=== PATIENT | male | born 1940 | race Caucasian/White ===

== ENCOUNTER 2017-02-25 23:46 | Observation (INO) | payer MEDICARE, OTHER ==
--- NOTE | 2017-02-26 02:18 | ER Document Report ---
ED GI Bleed / Rectal Pain - General Chief Complaint: Rectal Bleeding Stated Complaint: RECTAL BLEEDING Time Seen by Provider: 02/26/17 01:57 Mode of Arrival: Ambulatory Information source: Patient Notes: 76-year-old male presents to ED for abdominal pain lower left and right started about 1030 tonight with rectal bleeding. He states it was dark red globules. States she has a history of diverticulosis with rectal bleed in the past that he was hospitalized for. States this was not as bad as last time.. TRAVEL OUTSIDE OF THE [place] IN LAST 30 DAYS: No - HPI Patient complains to provider of: Dark red bld from rectum. No: Hemorrhoids Onset: This evening Timing/Duration: Sudden, Better Quality of pain: Cramping Severity of symptoms: Moderate Pain Level: 2 Emesis description: Bright red blood - Dark red Rectal bleeding: Bleeding w/o stool - Bright red blood in his depends with globules Rectal foreign body: No Rectal pain with intercourse: No Associated symptoms: Abdominal pain. denies: Bruising/bleeding gums, Constipation, Hard stools Exacerbated by: Denies Relieved by: Denies Similar symptoms previously: Yes Recently seen / treated by doctor: No - Related Data Allergies/Adverse Reactions: No Known Drug Allergies Allergy (Verified 04/22/14 11:48) Past Medical History - General Information source: Patient - Social History Smoking Status: Never Smoker Cigarette use (# per day): No Chew tobacco use (# tins/day): No Smoking Education Provided: No Frequency of alcohol use: None Occupation: Retired Lives with: Family Family History: CAD, Hyperlipidemia, Hypertension, Thyroid Disfunction. denies : COPD, CVA, DM, Malignancy Patient has suicidal ideation: No Patient has homicidal ideation: No - Past Medical History Cardiac Medical History: Reports: Hx Hypercholesterolemia, Hx Hypertension - CONTROLLED Pulmonary Medical History: Reports: None EENT Medical History: Reports: None Neurological Medical History: Reports: None Endocrine Medical History: Reports: None Renal/ Medical History: Reports: None Malignancy Medical History: Reports None GI Medical History: Reports: Hx Colonoscopy, Other - Diverticulosis with rectal bleed Musculoskeltal Medical History: Reports Hx Arthritis, Reports Hx Musculoskeletal Deformity Skin Medical History: Reports None Psychiatric Medical History: Reports: None Traumatic Medical History: Reports: None Infectious Medical History: Reports: None Past Surgical History: Reports: Hx Orthopedic Surgery - Right total hip - Immunizations Immunizations up to date: Yes Hx Diphtheria, Pertussis, Tetanus Vaccination: Yes Review of Systems - Review of Systems Constitutional: No symptoms reported EENT: No symptoms reported Cardiovascular: No symptoms reported Respiratory: No symptoms reported Gastrointestinal: Abdominal pain - Bilateral lower, Rectal bleeding Genitourinary: No symptoms reported Male Genitourinary: No symptoms reported Musculoskeletal: No symptoms reported Skin: No symptoms reported Hematologic/Lymphatic: No symptoms reported Neurological/Psychological: No symptoms reported -: Yes All other systems reviewed and negative Physical Exam - Vital signs Vitals: Temp Pulse Resp BP Pulse Ox 97.5 F 79 16 149/71 H 97 02/26/17 00:00 02/26/17 00:00 02/26/17 00:00 02/26/17 00:00 02/26/17 00:00 Interpretation: Normal - General General appearance: Appears well, Alert - HEENT Head: Normocephalic, Atraumatic Eyes: Normal Pupils: PERRL - Respiratory Respiratory status: No respiratory distress Chest status: Nontender Breath sounds: Normal Chest palpation: Normal - Cardiovascular Rhythm: Regular Heart sounds: Normal auscultation Murmur: No - Abdominal Inspection: Normal Distension: No distension Bowel sounds: Normal Tenderness: Tender - Mild bilateral lower abdominal pain. No: McBurney's point , Kirkland's sign, Guarding, Rebound Organomegaly: No organomegaly - Rectal Tenderness: No Stool: Heme positive Hemorrhoids: None - Back Back: Normal, Nontender - Extremities General upper extremity: Normal inspection, Nontender, Normal color, Normal ROM , Normal temperature General lower extremity: Normal inspection, Nontender, Normal color, Normal ROM , Normal temperature, Normal weight bearing. No: Soni's sign - Neurological Neuro grossly intact: Yes Cognition: Normal Orientation: AAOx4 Toshia Coma Scale Eye Opening: Spontaneous L[place]ton Coma Scale Verbal: Oriented Toshia Coma Scale Motor: Obeys Commands Toshia Coma Scale Total: 15 Speech: Normal Motor strength normal: LUE, RUE, LLE, RLE Sensory: Normal - Psychological Associated symptoms: Normal affect, Normal mood - Skin Skin Temperature: Warm Skin Moisture: Dry Skin Color: Normal Course - Re-evaluation Re-evalutation: 02/26/17 07:[address] Broussard from [phone]. After numerous attempts with no answer multiple hang-up when ringing, call Dr. Flores at [phone]. He stated that I needed to have back before they would accept the patient because there is no GI traffic personnel supervisor today. There was GI coverage last night. Dr. Stephens today was consulted, he states he will be traffic personnel supervisor for this patient if there is any complications with a GI bleed. Called Jose Zhang PROBATION MANAGER she has accepted the patient with surgical consult patient will be admitted to IMCU observation. - Vital Signs Vital signs: Temp Pulse Resp BP Pulse Ox 97.5 F 68 18 150/76 H 95 02/26/17 00:00 02/26/17 06:05 02/26/17 06:05 02/26/17 06:05 02/26/17 06:05 - Laboratory Result Diagrams: 02/26/17 02:31 02/26/17 02:31 Laboratory results interpreted by me: 02/26/17 02/26/17 02/26/17 02:02 02:31 02:31 WBC 10.7 H RBC 3.98 L Hgb 11.5 L Hct 35.4 L RDW 14.3 H Absolute Neutrophils 8.3 H Glucose 121 H Urine Blood SMALL H Ur Leukocyte Esterase TRACE H - Diagnostic Test Radiology reviewed: Image reviewed, Reports reviewed Discharge - Discharge Clinical Impression: Rectal bleeding Diverticulosis of colon Qualifiers: Diverticulosis bleeding: diverticulosis with bleeding Qualified Code(s): K57.31 - Diverticulosis of large intestine without perforation or abscess with bleeding Admitting Provider: Hospitalist - [facility] Admitted: IMCU Referrals: JOSEMANUEL MILLER MD [Primary Care Provider] - Follow up as needed
[2017-02-26 02:35] LABS: APPEARANCE,URINE SLIGHTLY-CLOUDY; BILIRUBIN,URINE NEGATIVE (NEGATIVE); CALCIUM OXALATE CRYSTALS,URINE MANY /HPF; GLUCOSE, URINE NEGATIVE (NEGATIVE); KETONES,URINE NEGATIVE (NEGATIVE); LEUKOCYTE ESTERASE,URINE TRACE (NEGATIVE); NITRITE,URINE NEGATIVE (NEGATIVE); PROTEIN,URINE NEGATIVE (NEGATIVE); URINE SPECIFIC GRAVITY 1.024; UROBILINOGEN,URINE NEGATIVE mg/dL (<2.0)
[2017-02-26] MEDS: NORMAL SALINE 1000 ML 1,000 ML IV PRN ×2 (02:43→22:15)
[2017-02-26 02:48] LABS: ABSOLUTE BASOPHILS # (AUTO) 0.1 10^3/uL (0.0-0.2); ABSOLUTE EOSINOPHILS # (AUTO) 0.1 10^3/uL (0.0-0.6); ABSOLUTE LYMPHOCYTES (AUTO) 1.4 10^3/uL (0.5-4.7); ABSOLUTE MONOCYTES (AUTO) 0.8 10^3/uL (0.1-1.4); ABSOLUTE NEUT (AUTO) 8.3 10^3/uL (1.7-8.2); BASOPHILS % (AUTO) 0.7 % (0-2); EOSINOPHILS % (AUTO) 0.9 % (0-6); HEMATOCRIT 35.4 % (37.9-51.0); HEMOGLOBIN 11.5 g/dL (13.5-17.0); HGB HCT DIFFERENCE -0.9; MEAN CORPUSCULAR HEMOGLOBIN 28.8 pg (27.0-33.4); MEAN CORPUSCULAR HGB CONC 32.4 g/dL (32.0-36.0); MEAN CORPUSCULAR VOLUME 89 fl (80-97); MONOCYTES % (AUTO) 7.8 % (3-13); RED BLOOD COUNT 3.98 10^6/uL (4.35-5.55); RED CELL DISTRIBUTION WIDTH 14.3 % (11.5-14.0); SEGMENTED NEUTROPHILS % (AUTO) 77.6 % (42-78); WHITE BLOOD COUNT 10.7 10^3/uL (4.0-10.5)
[2017-02-26 02:58] LABS: ALANINE AMINOTRANSFERASE 51 U/L (21-72); ALBUMIN 3.7 g/dL (3.5-5.0); ALKALINE PHOSPHATASE 88 U/L (38-126); ANION GAP 10 (5-19); ASPARTATE AMINO TRANSFERASE 35 U/L (17-59); BILIRUBIN,DIRECT 0.3 mg/dL (0.0-0.4); BILIRUBIN,TOTAL 0.6 mg/dL (0.2-1.3); BLOOD UREA NITROGEN 12 mg/dL (7-20); CARBON DIOXIDE 26 mmol/L (22-30); CHLORIDE 103 mmol/L (98-107); CREATININE RESULT 0.87 mg/dL (0.52-1.25); GLUCOSE 121 mg/dL (75-110); POTASSIUM 3.6 mmol/L (3.6-5.0); SODIUM 139.2 mmol/L (137-145); TOTAL PROTEIN 6.7 g/dL (6.3-8.2)
--- NOTE | 2017-02-26 05:01 | RADIOLOGY REPORT (SQ) ---
EXAM DESCRIPTION: CT ABD/PELVIS WITH IV ORAL COMPLETED DATE/TIME: 02/26/2017 4:31 am REASON FOR STUDY: lower abd pain with rectal bleed COMPARISON: 06.07.13 TECHNIQUE: CT scan of the abdomen and pelvis performed using helical scanning technique with dynamic intravenous contrast injection. No oral contrast. Images reviewed with lung, soft tissue, and bone windows. Reconstructed coronal and sagittal MPR images reviewed. Delayed images for evaluation of the urinary system also acquired. All images stored on PACS. All CT scanners at this facility use dose modulation, iterative reconstruction, and/or weight based d osing when appropriate to reduce radiation dose to as low as reasonably achievable (ALARA). [facility]: Dose Right [facility]: CareDose [facility]: Dose Right [facility]: Teradose 4D [facility]: RFMarq CONTRAST TYPE AND DOSE: contrast/concentration: Isovue 370.00 mg/ml; Total Contrast Delivered: 76.0 ml; Total Saline Delivered: 41.0 ml RENAL FUNCTION: Creatinine 0.9. RADIATION DOSE: Up-to-date CT equipment and radiation dose reduction techniques were employed. CTDIv ol: 18.5 - 18.5 mGy. DLP: 1994 mGy-cm.. LIMITATIONS: None. FINDINGS: LOWER CHEST: No significant findings. No nodules or infiltrates. Small to moderate hiatal hernia. LIVER: Normal size. No masses. No dilated ducts. SPLEEN: Normal size. No focal lesions. PANCREAS: No masses. No significant calcifications. No adjacent inflammation or peripancreatic fluid collections. Pancreatic duct not dilated. GALLBLADDER: Gallstones. No inflammatory changes to suggest cholecystitis. ADRENAL GLANDS: No significant masses or asymmetry. RIGHT KIDNEY AND URETER: No solid masses. No significant calcifications. No hydronephrosis or hyd roureter. Likely benign cysts not definitively characterized measuring up to 5.0 cm. LEFT KIDNEY AND URETER: No solid masses. No significant calcifications. No hydronephrosis or hydr oureter. Likely benign small cysts not definitively characterize. AORTA AND VESSELS: No aneurysm. No dissection. Renal arteries, SMA, celiac without stenosis. RETROPERITONEUM: No retroperitoneal adenopathy, hemorrhage or masses. BOWEL AND PERITONEAL CAVITY: No masses or inflammatory changes. No free fluid or peritoneal masses. Moderate colonic diverticulosis. APPENDIX: Normal. PELVIS: No mass. No free fluid. Normal bladder. ABDOMINAL WALL: No masses. 4 cm right inguinal hernia involving a 7 cm segment of ileal bowel. No e vidence of obstruction. No evidence of incarceration. 2 cm left inguinal hernia involves a partial 1.5 cm small bowel herniation without complication. BONES: Right total hip arthroplasty with chronic superolateral migration of the acetabular component. Ankylosing spondylitis pattern. Severe L5-S1 vacuum disc desiccation. Moderate L5-S1 disc bulge m oderate L5-S1 spondylosis with moderate bilateral L5 foraminal stenoses. OTHER: No other significant finding. IMPRESSION: No acute findings. Moderate right inguinal, small bowel herniation. Small left inguina l, partial small bowel herniation. Moderate hiatal hernia. Cholelithiasis. Diverticulosis of the c olon. Chronic ankylosing spondylitis pattern. TECHNICAL DOCUMENTATION: JOB ID: [id number] Quality ID # [id number]: Final reports with documentation of one or more dose reduction techniques (e.g., Au tomated exposure control, adjustment of the mA and/or kV according to patient size, use of iterative reconstruction technique) 2010 [employer]- All Rights Reserved
[2017-02-26] MEDS ORDERED: RINGERS SOLUTION,LACTATED 1,000 ML IV PRN (07:26)
[2017-02-26 08:59] LABS: ABSOLUTE LYMPHOCYTES (AUTO) 0.8 10^3/uL (0.5-4.7); ABSOLUTE MONOCYTES (AUTO) 0.4 10^3/uL (0.1-1.4); ABSOLUTE NEUT (AUTO) 5.3 10^3/uL (1.7-8.2); BASOPHILS % (AUTO) 0.5 % (0-2); EOSINOPHILS % (AUTO) 0.5 % (0-6); HEMATOCRIT 31.3 % (37.9-51.0); HEMOGLOBIN 10.3 g/dL (13.5-17.0); HGB HCT DIFFERENCE -0.4; LYMPHOCYTES % (AUTO) 12.8 % (13-45); MEAN CORPUSCULAR HEMOGLOBIN 28.9 pg (27.0-33.4); MEAN CORPUSCULAR HGB CONC 32.8 g/dL (32.0-36.0); MEAN CORPUSCULAR VOLUME 88 fl (80-97); MONOCYTES % (AUTO) 6.1 % (3-13); RED BLOOD COUNT 3.55 10^6/uL (4.35-5.55); SEGMENTED NEUTROPHILS % (AUTO) 80.1 % (42-78); WHITE BLOOD COUNT 6.6 10^3/uL (4.0-10.5)
--- NOTE | 2017-02-26 10:28 | HISTORY AND PHYSICAL E ---
History and Physical NAME: FRAN CHENG : 1940 AGE: 76Y ADMITTED: 02/26/2017 ROOM: ED11 CODE STATUS: FULL CODE. PRIMARY CARE PROVIDER: Dr. Rojas Balderas CHIEF COMPLAINT: Bloody stool. HISTORY OF PRESENT ILLNESS: The patient is a 76-year-old male with a past medical history of hypertension and a previous episode of diverticular bleeding. The patient presented to the emergency department with a chief complaint of bloody stools. According to the patient, at approximately 2230 on 02/25/2017, the patient had a bowel movement that he described as "nothing but blood." The patient initially thought there may be stool in this; however, upon reflection, feels that it was just coagulated blood and not actual stool. Upon presentation to the emergency department, the patient was found to have a heart rate of 79. He was normotensive, but hemoglobin was found to be 11.5 and the patient was referred to the hospitalist for admission and management. While in the emergency department, the patient had 2 episodes of what he described as bloody bowel movements that actually did consist of stool; however, this was not witnessed by emergency room staff. The patient had a guaiac that was positive. No repeat hemoglobin has been obtained at this time. PAST MEDICAL HISTORY: Remarkable for: 1. Hypertension. 2. Known diverticulosis with previous diverticular bleed. 3. Benign prostatic hyperplasia. 4. Hyperlipidemia. PAST SURGICAL HISTORY: Remarkable for right hip replacement. ALLERGIES: No known drug allergies. HOME MEDICATIONS: Include: 1. Oxazepam 15 mg p.o. q. hour of sleep. 2. Flomax 0.4 mg p.o. q. evening. 3. Enalapril 10 mg p.o. b.i.d. 4. Finasteride 5 mg p.o. nightly. 5. Simvastatin 20 mg p.o. q. hour of sleep. SOCIAL HISTORY: The patient currently resides at home with his who is also surrogate decision maker. Her name is Hiro who may be reached at [phone] or [phone]. The patient has no history of tobacco use, no history of alcohol or illicit drug use. He is retired from the state. FAMILY MEDICAL HISTORY: Positive for coronary artery disease in his father. He did from this. The patient's mother of old age at the age of 92. Denies any family history of colon cancer. Siblings have no chronic medical issues, children who are healthy. REVIEW OF SYSTEMS: CONSTITUTIONAL: The patient denies any fevers, chills, dizziness, or weakness. No loss of appetite. SKIN: The patient denies any diaphoresis, rash, bruising, itching. HEENT: Denies any vision change, hearing loss, nasal drainage, sore throat, headache. CARDIOVASCULAR SYSTEM: Denies any chest pain, edema, heart palpitations. RESPIRATORY: Denies any cough, sputum production, or hemoptysis. GASTROINTESTINAL: Denies any nausea, vomiting, diarrhea, abdominal pain, bloating, hematemesis, constipation, melena, but positive for hematochezia or bright red bleeding per rectum. GENITOURINARY: Denies any hematuria or dysuria. MUSCULOSKELETAL: Denies any acute or chronic joint pain. NEUROLOGICAL: Denies any seizures, tremors, or loss of consciousness. HEMATOLOGICAL: The patient has had an episode of fran bleeding. Denies easy bruising. ENDOCRINE: Denies any recent weight changes. PSYCHIATRIC: Denies suicidal/homicidal ideations. The rest of review of the other organ systems is negative. PHYSICAL EXAMINATION: GENERAL: On examination, the patient is a well-developed, well-nourished 76-year-old male who is awake, alert, and oriented to person, place, time, and situation. He is verbal, conversational, ambulatory, does not appear to be in any acute distress. VITAL SIGNS: Temperature is 98.7, pulse 67, respirations 18, blood pressure 156/71, oxygen saturation 96% on room air. SKIN: Warm and dry. No rash. She is not diaphoretic. HEENT: Pupils equal, round, and reactive to light and accommodation. Conjunctiva pink. No JVP. CARDIOVASCULAR SYSTEM: Heart is regular. There is no murmur or rub. CHEST: Clear, symmetrical, unlabored. ABDOMEN: Soft, nontender, nondistended. BACK: No CVA tenderness or sacral edema. EXTREMITIES: No clubbing, cyanosis, edema, +2 pedal pulses noted bilaterally. All extremities are warm. PSYCHIATRIC: Appropriate affect, pleasant mood. NEUROLOGIC: Cranial nerves II-XII are grossly intact. DIAGNOSTICS: Lab values are as follows: Hematology obtained on 02/26/2017: WBCs are 6.6, hemoglobin is 10.3, hematocrit is 31.3, platelet count is 197,000. Chemistry obtained on 02/26/2017: Sodium is 139, potassium 3.6, chloride is 103, carbon dioxide 26, BUN 12, creatinine is 0.87, glucose 121, calcium is 9.0, bilirubin is 0.6. AST 35, ALT is 51, Alk phos 88, total protein 6.7, albumin 3.7. Urinalysis obtained on 02/26/2017: Color yellow, appearance slightly cloudy. PH is 5.0, specific gravity is 1.024. Protein negative, glucose negative, ketones negative, occult blood small, nitrate negative, bilirubin negative, urobilinogen is negative, leukocyte esterase is trace. WBCs 8, RBCs 1, casts 1, epithelial squamous cells 12, mucus few, ascorbic acid is negative. Stool for occult blood is positive. CT of the abdomen and pelvis obtained on 02/26/2017 reveals no acute findings, moderate right inguinal small bowel herniation, small left inguinal partial small herniation, moderate hiatal hernia, cholelithiasis without evidence of cholecystitis, diverticulosis of the colon, chronic ankylosing spondylitis pattern. IMPRESSION AND PLAN: 1. Lower gastrointestinal hemorrhage. Will repeat CBC STAT. Will lower threshold for transfusion to less than 9 or if the patient becomes more symptomatic. The patient has had no further episodes since approximately 0700. Will continue to watch this closely. Do appreciate Surgery's ability to follow along with us. Will follow. Will obtain serial CBCs as well. 2. Hypertension. The patient's blood pressures are in a good range. Will allow some leadway with this. In the event the patient bleeds, have some pressure to work with. 3. Benign prostatic hyperplasia. Will continue the patient's home medications. 4. Hyperlipidemia. Will hold statin for now. 5. Deep venous thrombosis prophylaxis. The patient is ambulatory. Will add VIRGIL beltran. Defer pharmacological prophylaxis given the patient's bleeding. DISPOSITION: The patient is a FULL CODE. Pending patient's symptomatology and diagnostic findings, will re-evaluate as needed. Will observe the patient in IMCU as the patient's expected length of stay should not surpass 2 midnights unless the patient develops more bleeding. Time spent on this admission including assessment, plan, physical examination, patient education, specialty collaboration, and review of previous records is 50 minutes. DICTATING PHYSICIAN: MANDIE POLANCO NP [id number] PHY#: [id number] ID: [id number] JOB#: [id number] ACCT: [id number] cc:LIZBETH BENDER M.D. MANDIE POLANCO NP > [facility]
--- NOTE | 2017-02-26 10:59 | Physician Advisory Note ---
Physician Advisor ProgressNote .: [facility], I have reviewed the medical record for this patient. Physician Advisor Statement: Beautifully documented reasoning for Obs status in H&P. If pt develops worsening/ongoing clinical issues that prevent d/c 02/27, this can be documented & then pt changed to Inpt. CK
[2017-02-26 15:28] LABS: HEMOGLOBIN 10.5 g/dL (13.5-17.0); HGB HCT DIFFERENCE -0.5; MEAN CORPUSCULAR HGB CONC 32.8 g/dL (32.0-36.0); MEAN CORPUSCULAR VOLUME 89 fl (80-97); RED BLOOD COUNT 3.62 10^6/uL (4.35-5.55); RED CELL DISTRIBUTION WIDTH 14.5 % (11.5-14.0); WHITE BLOOD COUNT 7.6 10^3/uL (4.0-10.5)
[2017-02-26 22:09] LABS: HEMATOCRIT 29.5 % (37.9-51.0); HEMOGLOBIN 9.6 g/dL (13.5-17.0); HGB HCT DIFFERENCE -0.7; MEAN CORPUSCULAR HEMOGLOBIN 28.8 pg (27.0-33.4); MEAN CORPUSCULAR HGB CONC 32.5 g/dL (32.0-36.0); MEAN CORPUSCULAR VOLUME 89 fl (80-97); RED BLOOD COUNT 3.32 10^6/uL (4.35-5.55); RED CELL DISTRIBUTION WIDTH 14.4 % (11.5-14.0); WHITE BLOOD COUNT 6.4 10^3/uL (4.0-10.5)
[2017-02-27 04:39] LABS: HEMATOCRIT 30.1 % (37.9-51.0); HEMOGLOBIN 9.9 g/dL (13.5-17.0); HGB HCT DIFFERENCE -0.4; MEAN CORPUSCULAR HEMOGLOBIN 29.1 pg (27.0-33.4); MEAN CORPUSCULAR VOLUME 88 fl (80-97); RED BLOOD COUNT 3.41 10^6/uL (4.35-5.55); RED CELL DISTRIBUTION WIDTH 14.3 % (11.5-14.0); WHITE BLOOD COUNT 6.3 10^3/uL (4.0-10.5)
[2017-02-27] MEDS: NORMAL SALINE 1000 ML 1,000 ML IV PRN ×2 (05:52→15:02)
--- NOTE | 2017-02-27 09:22 | PDOC CONSULTATION ---
Consultation Consult Date: 02/27/17 Attending physician:: REFUGIO GONZALEZ Consult reason:: GI bleeding History of Present Illness Admission Date/PCP: 02/26/17 07:26 JOSEMANUEL MILLER MD History of Present Illness: NIKOLE CHENG JR is a 76 year old male Patient was admitted by the Hospitalist service, had GI bleeding previously was scoped any was noted to have significant diverticular disease this was presumed to be the source has been doing well since then patient also had polyp that was removed in the past, may be due for a surveillance as well when admitted, Hgb was stable and plan was for possible observation no blood transfusion as yet this am, had another bleeding episode Called to see patient denies any pain or melena patient denies any chest pain or shortness of breath Past Medical History Cardiac Medical History: Reports: Hyperlipidema, Hypertension - CONTROLLED Denies: Myocardial Infarction Pulmonary Medical History: Reports: None Denies: Asthma EENT Medical History: Reports: None Neurological Medical History: Reports: None Denies: Seizures Endocrine Medical History: Reports: None Renal/ Medical History: Reports: None Malignancy Medical History: Reports: None GI Medical History: Reports: Other - Diverticulosis with rectal bleed Denies: Hiatal Hernia Musculoskeltal Medical History: Reports: Arthritis Skin Medical History: Reports: None Psychiatric Medical History: Reports: None Traumatic Medical History: Reports: None Hematology: Denies: Anemia, Sickle Cell Disease Infectious Medical History: Reports: None Past Surgical History Past Surgical History: Reports: Orthopedic Surgery - Right total hip Social History Lives with: Family Smoking Status: Never Smoker Frequency of Alcohol Use: None Hx Recreational Drug Use: No Drugs: None Hx Prescription Drug Abuse: No - Advance Directive Resuscitation Status: Full Code Family History Family History: CAD, Hyperlipidemia, Hypertension, Thyroid Disfunction. denies : COPD, CVA, DM, Malignancy Parental Family History Reviewed: Yes Children Family History Reviewed: Unknown Sibling(s) Family History Reviewed.: Unknown Medication/Allergy Home Medications: Enalapril Maleate [Vasotec 10 mg Tablet] 10 mg PO Q12 02/26/17 Oxazepam [Serax] 15 mg PO DAILY 02/26/17 Simvastatin [Zocor 20 mg Tablet] 20 mg PO QHS 02/26/17 Tamsulosin HCl [Flomax 0.4 mg Cap.sr] 0.4 mg PO QHS 02/26/17 Allergies/Adverse Reactions: No Known Drug Allergies Allergy (Verified 02/26/17 08:13) Review of Systems Constitutional: ABSENT: fever(s), headache(s), night sweats, weakness Eyes: ABSENT: visual disturbances Ears: ABSENT: hearing changes Nose, Mouth, and Throat: ABSENT: mouth pain Cardiovascular: ABSENT: edema, orthropnea Respiratory: ABSENT: dyspnea, hemoptysis Gastrointestinal: ABSENT: dysphagia, nausea, vomiting Genitourinary: ABSENT: dysuria Musculoskeletal: ABSENT: joint swelling Integumentary: ABSENT: pruritus Neurological: ABSENT: numbness, syncope, tingling, vertigo Endocrine: ABSENT: polydipsia, polyphagia, polyuria Hematologic/Lymphatic: ABSENT: easy bruising Physical Exam Vital Signs: Temp Pulse Resp BP Pulse Ox 98.9 F 61 16 148/65 H 99 02/27/17 07:30 02/27/17 07:30 02/27/17 07:30 02/27/17 07:30 02/27/17 07:30 Intake & Output 02/26/17 02/27/17 02/28/17 06:59 06:59 06:59 Intake Total 4200 Output Total 2 Balance 4198 Weight 71 kg General appearance: PRESENT: no acute distress, well-developed, well-nourished Head exam: PRESENT: normocephalic Eye exam: PRESENT: EOMI, PERRLA. ABSENT: nystagmus, periorbital swelling Mouth exam: PRESENT: moist, neck supple Throat exam: ABSENT: tonsillar exudate, tonsillogmegaly Neck exam: ABSENT: meningismus, tenderness, thyromegaly Respiratory exam: PRESENT: symmetrical, unlabored Cardiovascular exam: PRESENT: RRR, +S1, +S2 Pulses: PRESENT: normal carotid pulses GI/Abdominal exam: PRESENT: soft. ABSENT: ascites, Kirkland's sign, rebound, tenderness Gentrourinary exam: ABSENT: lesions Extremities exam: ABSENT: joint swelling Musculoskeletal exam: PRESENT: full ROM Neurological exam: PRESENT: oriented to time, oriented to situation, reflexes normal Skin exam: PRESENT: normal color. ABSENT: mottled, pallor, urticaria, vesicles Results Laboratory Results: 02/27/17 04:15 02/26/17 02/26/17 02/27/17 14:43 22:02 04:15 WBC 7.6 6.4 6.3 RBC 3.62 L 3.32 L 3.41 L Hgb 10.5 L 9.6 L 9.9 L Hct 32.0 L 29.5 L 30.1 L MCV 89 89 88 MCH 29.0 28.8 29.1 MCHC 32.8 32.5 33.0 RDW 14.5 H 14.4 H 14.3 H Plt Count 232 199 160 Impressions: Abdomen/Pelvis CT 02/26/17 00:00 IMPRESSION: No acute findings. Moderate right inguinal, small bowel herniation. Small left inguinal, partial small bowel herniation. Moderate hiatal hernia. Cholelithiasis. Diverticulosis of the colon. Chronic ankylosing spondylitis pattern. Assessment & Plan - Diagnosis (1) Diverticulosis of colon Qualifiers: Diverticulosis bleeding: diverticulosis with bleeding Qualified Code(s) : K57.31 - Diverticulosis of large intestine without perforation or abscess with bleeding Plan: likely having diverticular bleeding will monitor H/H transfuse as necessary will need colonoscopy Risks, benefits and alternatives are discussed with the patient in detail further recommendations to follow (2) Rectal bleeding Plan: will need to exclude other etiology (3) Colon polyp Plan: due for surveillance as well should proceed while inpatient - Time Time Spent: 50 to 70 Minutes
--- NOTE | 2017-02-27 09:43 | PROGRESS NOTE E ---
Progress Note NAME: NIKOLE CHENG : 1940 AGE: 76Y DATE: 02/27/2017 ROOM: 320 SUBJECTIVE: The patient is currently lying in bed. He states he feels okay today. He denies any nausea, vomiting, diarrhea. No shortness of breath, dizziness, chest pain. No fevers, chills. The patient has been afebrile. His blood pressure has been in a good range. The patient does not voice any other concerns at this time. According to the patient, this morning at 5 a.m. he had yet another bloody stool. Given that the patient has went almost 24 hours in between episodes, concern for a significant GI bleed. Patient's hemoglobin has remained relatively stable; however, will proceed with GI evaluation. REVIEW OF SYSTEMS: Rest of review of systems negative. MEDICATIONS: Medications have been reviewed. OBJECTIVE: GENERAL: The patient is a very pleasant 76-year-old male who is awake, alert, and oriented to person, place, time, and situation. He is verbal, conversational, ambulatory, does not appear to be in acute distress. VITAL SIGNS: Temperature is 98.9, pulse 61, respirations 16, blood pressure is 148/65, oxygen saturation is 99% on room air. SKIN: Warm and dry. No rash. Not diaphoretic. HEENT: Pupils equal, round, and reactive to light and accommodation. Conjunctiva pink. No JVP. CARDIOVASCULAR SYSTEM: Heart is regular. There is no murmur or rub. CHEST: Clear, symmetrical, unlabored. ABDOMEN: Soft, nontender, nondistended. BACK: No CVA tenderness or sacral edema. EXTREMITIES: No clubbing, cyanosis, edema. PSYCHIATRIC: Appropriate affect, pleasant mood. DIAGNOSTICS: Lab values are as follows: Hematology obtained on 02/27/2017: WBCs are 6.3, hemoglobin is 9.9, hematocrit is 30.1, platelet count is 160,000. Chemistry obtained on 02/26/2017: Sodium is 139, potassium 3.6, chloride is 103, carbon dioxide is 26, BUN 12, creatinine is 0.87, glucose 121, calcium is 9.0, bilirubin is 0.6. AST 35, ALT is 51, Alk phos 88, total protein 6.7, albumin 3.7. IMPRESSION AND PLAN: 1. LOWER GI BLEED. Patient had a reoccurrence of episode this morning. Therefore, will consult GI, monitor patient's hemoglobin, and follow. Do appreciate specialty input. 2. HYPERTENSION. Blood pressure has been in a good range. Will allow some leadway with this given that if the patient bleeds would have some pressure to work with. 3. BENIGN PROSTATIC HYPERPLASIA. Will continue home medication. 4. HYPERLIPIDEMIA. Will go ahead and resume the statin. 5. DVT PROPHYLAXIS. The patient is ambulatory. Will continue VIRGIL hose, but defer pharmacological prophylaxis given the patient's bleeding. DISPOSITION: The patient is a FULL CODE. Pending patient's symptomatology and diagnostic findings, will re-evaluate as needed. Time spent on this followup including assessment, plan, physical examination, patient education, specialty collaboration is 25 minutes. DICTATING PHYSICIAN: MANDIE POLANCO NP [id number] PHY#: [id number] ID: [id number] JOB#: [id number] ACCT: [id number] cc: >
[2017-02-27] MEDS: ENALAPRIL MALEATE 10 MG TABLET PO SCH ×2 (10:01→21:55)
[2017-02-27] MEDS ORDERED: PEG 3350/NA SULF,BICARB,CL/KCL 4000 ML PO ONE (18:00)
[2017-02-27] MEDS ORDERED: GLUCAGON,HUMAN RECOMB 1 MG INJ SUBCUT PRN (18:18)
[2017-02-27] MEDS ORDERED: DEXTROSE 40% GEL 15 GM TUBE PO PRN ×2 (18:18)
[2017-02-27] MEDS ORDERED: DEXTROSE 50%-WATER 25 GM/50 ML DISP.SYRIN IV PRN ×2 (18:18)
[2017-02-27] MEDS: SIMVASTATIN 10 MG TABLET PO SCH (21:56)
[2017-02-27] MEDS: TAMSULOSIN HCL 0.4 MG CAP.SR.24H PO SCH (21:56)
[2017-02-28 06:04] LABS: HEMATOCRIT 30.8 % (37.9-51.0); HEMOGLOBIN 10.2 g/dL (13.5-17.0); HGB HCT DIFFERENCE -0.2; MEAN CORPUSCULAR HEMOGLOBIN 28.9 pg (27.0-33.4); MEAN CORPUSCULAR VOLUME 88 fl (80-97); RED BLOOD COUNT 3.52 10^6/uL (4.35-5.55); WHITE BLOOD COUNT 5.1 10^3/uL (4.0-10.5)
[2017-02-28] MEDS: NORMAL SALINE 1000 ML 1,000 ML IV PRN (08:57)
--- NOTE | 2017-02-28 09:57 | PROGRESS NOTE E ---
Progress Note NAME: NIKOLE CHENG : 1940 AGE: 76Y DATE: 02/28/2017 ROOM: 320 SUBJECTIVE: The patient is currently lying in bed. He states he feels okay today. The patient's hemoglobin is relatively stable. However, overnight during his prep, the patient did have a large volume of clots. Could possibly be from the previous bleeding; however, the patient is to have endoscopy today. There have been no reported episodes of vomiting nor diarrhea. The patient has been afebrile. Blood pressure has been in a good range. The patient does not voice any other concerns at this time. REVIEW OF SYSTEMS: Rest of review of systems negative. MEDICATIONS: Medications have been reviewed. OBJECTIVE: GENERAL: The patient is a 76-year-old male who is awake, alert, and oriented to person, place, time, and situation. He is verbal, conversational, ambulatory, does not appear to be in acute distress. VITAL SIGNS: Temperature is 98.3, pulse 60, respirations 20, blood pressure 132/61, oxygen saturation 98% on room air. SKIN: Warm and dry. No rash. Not diaphoretic. HEENT: Pupils equal, round, and reactive to light and accommodation. Conjunctivae pink. No JVP. CARDIOVASCULAR SYSTEM: Heart is regular. There is no murmur or rub. CHEST: Clear, symmetrical, unlabored. ABDOMEN: Soft, nontender, nondistended. Bowel sounds are present. BACK: No CVA tenderness or sacral edema. EXTREMITIES: No clubbing, cyanosis, edema. PSYCHIATRIC: Appropriate affective, pleasant mood. DIAGNOSTICS: Lab values are as follows: Hematology obtained on 02/28/2017: WBCs are 5.1, hemoglobin is 10.2, hematocrit is 30.8, platelet count is 211,000. IMPRESSION AND PLAN: 1. LOWER GI BLEED. The patient did have clots overnight. This may just be old blood given that his hemoglobin has remained stable. However, given the overall, still remains concern. The patient does need to be monitored. The patient is to have a colonoscopy today with Dr. Bray around lunchtime. Most likely, will feel comfortable, given the patient's age, monitoring him after the procedure to make sure there is no reoccurrence of bleed. Will follow. 2. HYPERTENSION. Blood pressure has been in a good range. Will continue current medications. 3. BENIGN PROSTATIC HYPERPLASIA. Will continue the patient's home medications. 4. HYPERLIPIDEMIA. Will continue statin. 5. DVT PROPHYLAXIS. The patient is ambulatory. Have deferred pharmacological anticoagulation given the patient's rectal bleeding. DISPOSITION: The patient is a FULL CODE. Pending patient's symptomatology and diagnostic findings, most likely will re-evaluate in the a.m. Time spent on this followup including assessment, plan, physical examination, patient education, and specialty collaboration is 20 minutes. DICTATING PHYSICIAN: MANDIE POLANCO NP [id number] PHY#: [id number] ID: [id number] JOB#: [id number] ACCT: [id number] cc: >
[2017-02-28] MEDS: ENALAPRIL MALEATE 10 MG TABLET PO SCH ×2 (10:03→22:04)
[2017-02-28] MEDS ORDERED: DIPHENHYDRAMINE HCL 50 MG/ML VIAL ONE (12:35)
[2017-02-28] MEDS ORDERED: ONDANSETRON HCL INJ/PF 4 MG/2 ML SDV ONE (12:35)
[2017-02-28] MEDS ORDERED: NALOXONE HCL INJ/PF 0.4 MG/1 ML SDV ONE (12:35)
[2017-02-28] MEDS ORDERED: GLUCAGON,HUMAN RECOMB 1 MG INJ ONE (12:36)
[2017-02-28] MEDS ORDERED: FENTANYL CITRATE INJ/PF 100 MCG/2 ML AMPUL ONE (12:36)
[2017-02-28] MEDS ORDERED: EPINEPHRINE INJ 1 MG/10 ML DISP.SYRIN ONE (12:36)
[2017-02-28] MEDS ORDERED: FLUMAZENIL INJ 0.5 MG/5 ML VIAL IV ONE (12:36)
[2017-02-28] MEDS: MIDAZOLAM 2 MG/2 ML INJ ONE ×2 (13:58→14:03)
--- NOTE | 2017-02-28 14:40 | Operative Report ---
Operative Report DATE OF SURGERY: 02/28/17 Operative Report: The risks, benefits and alternatives of the procedure including risks of bleeding, perforation requiring surgery are explained to the patient detail and informed consent is obtained. Patient was taken back to the endoscopy suite and placed in the left, lateral decubital position. Timeout was called. Conscious sedation medications are provided. A rectal examination was done which did not reveal any masses, tears or fissures. An Olympus video scope was inserted into the patient's rectum. The scope was then carefully advanced all the way to the cecum. Cecum was identified by the usual anatomical landmarks of the ileocecal valve as well as the appendiceal office. Photodocumentation was obtained. Prep was good. Scope was then sequentially pulled back via the various segments of the colon including the ascending colon, hepatic flexure, transverse colon, splenic flexure, descending colon and finding to the rectosigmoid portions of the colon. Retroflexion maneuver was performed. PREOPERATIVE DIAGNOSIS: Rectal bleeding POSTOPERATIVE DIAGNOSIS: Diverticulosis. Previous history of diverticular bleeding. 2 polyps one in the ascending colon and the other in the rectum that were both removed via snare polypectomy and retrieved. Internal hemorrhoids OPERATION: Colonoscopy with snare polypectomy SURGEON: REFUGIO GONZALEZ ANESTHESIA: Moderate Sedation - 4 mg of Versed, 50 mcg of fentanyl. Conscious sedation monitoring time 30 minutes. TISSUE REMOVED OR ALTERED: Polyps as noted COMPLICATIONS: None. ESTIMATED BLOOD LOSS: None. INTRAOPERATIVE FINDINGS: As described above. PROCEDURE: Patient tolerated the procedure well. No immediate postprocedure complications are noted. Patient discharged back to his room in good condition. Discharge diet: Regular. Discharge activity: Regular. 2-3 week follow-up to discuss findings. Patient is instructed to call the office should there be any further problems or questions. Follow-up as an outpatient.
[2017-02-28] MEDS: SIMVASTATIN 10 MG TABLET PO SCH (22:04)
[2017-02-28] MEDS: TAMSULOSIN HCL 0.4 MG CAP.SR.24H PO SCH (22:05)
[2017-03-01 05:00] LABS: HEMATOCRIT 29.5 % (37.9-51.0); HEMOGLOBIN 9.7 g/dL (13.5-17.0); HGB HCT DIFFERENCE -0.4; MEAN CORPUSCULAR HEMOGLOBIN 28.9 pg (27.0-33.4); MEAN CORPUSCULAR VOLUME 88 fl (80-97); RED BLOOD COUNT 3.37 10^6/uL (4.35-5.55)
--- NOTE | 2017-03-01 08:48 | DISCHARGE SUMMARY E ---
Discharge Summary NAME: NIKOLE CHENG : 1940 AGE: 76Y ADMITTED: 02/26/2017 DISCHARGED: 03/01/2017 CODE STATUS: FULL CODE. PRIMARY CARE PROVIDER: Dr. Rojas Balderas. CONSULTING SEPARATIONS SCIENTIST: Dr. Bray. DISCHARGE DIAGNOSES: 1. Acute diverticular bleed which is now resolved. 2. Lower GI bleed secondary to #1. 3. Acute blood loss anemia secondary to the above, overall stable. 4. Hypertension. 5. Benign prostatic hyperplasia. 6. Hyperlipidemia. DISCHARGE MEDICATIONS: 1. Vasotec 10 mg p.o. q.12 h. 2. Oxazepam 15 mg p.o. daily. 3. Zocor 20 mg p.o. every hour of sleep. 4. Flomax 0.4 mg p.o. every hour of sleep. DIET: As tolerated, low residue. ACTIVITY: As tolerated. DIAGNOSTICS: Lab values are as follows: Hematology on 03/01/2017: WBCs are 6.0, hemoglobin 9.7, hematocrit 29.5, platelet count is 222,000. Chemistry obtained on 02/26/2017: Sodium is 139, potassium 3.6, chloride 103, carbon dioxide 26, BUN 12, creatinine 0.87, glucose 121, calcium 9.0, magnesium 2.0, bilirubin 0.6, AST 35, ALT 51, alkaline phosphatase 88, total protein 6.7, albumin 3.7, Urinalysis obtained on 02/26/2017: Color yellow, appearance slightly cloudy, pH 5.0, specific gravity is 1.024, protein negative, glucose negative, ketones negative, occult blood small, nitrite negative, bilirubin negative, urobilinogen negative, leukocyte esterase trace, WBC 8, RBC 1, cath 4, epithelial squamous cells 12, mucus few, ascorbic acid is negative. Other body sources obtained on 02/26/2017: Stool for occult blood is positive. CT of the abdomen and pelvis obtained on 02/26/2017 reveals no acute findings. Moderate right inguinal small bowel herniation, small left inguinal partial small bowel herniation, moderate hiatal hernia, cholelithiasis, diverticulosis of the colon, chronic ankylosing spondylitis pattern. Colonoscopy obtained on 02/28/2017 reveals diverticulosis, status post dual polypectomy with internal hemorrhoids. PHYSICAL EXAMINATION: GENERAL: On examination, the patient is a well-developed, well-nourished 76-year-old male who is awake, alert and oriented to person, place, time and situation. He is verbal, conversational, and ambulatory and does not appear to be in any acute distress. VITAL SIGNS FOLLOWS: Temperature 98.1, pulse 71, respirations 16, blood pressure 126/66, oxygen saturation is 99% on room air. SKIN: Warm and dry. No rash, not diaphoretic. HEENT: Pupils are equal, round, and reactive to light and accommodation. Conjunctivae is pink. NECK: There is no JVP. CARDIOVASCULAR: Heart is regular. There is no murmur or rub. CHEST: Clear, symmetrical and unlabored. ABDOMEN: Soft. Nontender, nondistended. BACK: No CVA tenderness or sacral edema. EXTREMITIES: No clubbing, cyanosis or edema. PSYCHIATRIC: Appropriate affect. Pleasant mood. HISTORY OF PRESENT ILLNESS: The patient is a very pleasant 76-year-old male with a past medical history that is remarkable for previous diverticular bleed. The patient presented to the emergency department with a chief complaint of bloody stools. According to the patient, at approximately 2230 on 02/25/2017, the patient was having a bowel movement which he described as nothing but blood. The patient initially thought there may be stool in this; however, upon reflection, he feels it was just coagulated blood and not actual stool. Upon presentation to the emergency department, the patient was found to have a heart rate of 79 and he was normotensive. His hemoglobin was found to be 11.5 and the patient was referred to the hospitalist for admission and management. HOSPITAL COURSE: The patient was admitted to the continuous telemetry unit. The patient had 2 episodes of bloody bowel movement which did not consist of any stool. The patient was guaiac positive. Repeat hemoglobin was overall stable; however, the patient did have a reoccurrence of bleed and, therefore, Dr. Bray with gastroenterology was consulted and the patient underwent colonoscopy. The patient did have evidence of diverticular bleed and after the procedure, the patient has been monitored for greater than 12 hours and the patient has had no reoccurrence of bleed. The patient's diet has been advanced and he has tolerated this, and the patient has agreed to follow up with GI. DISCHARGE PLANNIN. The patient is advised to follow up with Dr. Bray within 1-2 weeks for hospital followup. 2. The patient is advised to follow up with his primary care provider as needed. Time spent on this discharge including assessment and plan, physical examination, and patient education is 20 minutes. DICTATING PHYSICIAN: MANDIE POLANCO NP [id number] PHY#: [id number] ID: [id number] JOB#: [id number] ACCT: [id number] cc:LIZBETH BENDER M.D., MICHAEL NP >
[2017-03-01 09:16] VITALS: BP 144/64
[2017-03-01] MEDS: ENALAPRIL MALEATE 10 MG TABLET PO SCH (09:44)
--- NOTE | 2017-03-01 09:46 | PDOC PROGRESS REPORT ---
Subjective Progress Note for:: 03/01/17 Subjective:: No significant problems overnight. Patient tolerated his procedure well. Significant diverticulosis noted in the sigmoid. Bleeding has resolved. 2 polyps were removed. We will await pathology. Patient tolerating diet, no further bleeding Hemoglobin is stable Likely can be discharged Physical Exam Vital Signs: Temp Pulse Resp BP Pulse Ox 98.9 F 65 17 144/64 H 100 03/01/17 09:18 03/01/17 09:18 03/01/17 09:18 03/01/17 09:18 03/01/17 09:18 Intake & Output 02/28/17 03/01/17 03/02/17 06:59 06:59 06:59 Intake Total 4680 2017 Output Total 500 Balance 4180 2017 Weight 71.3 kg General appearance: PRESENT: no acute distress, well-developed, well-nourished Head exam: PRESENT: atraumatic, normocephalic Eye exam: PRESENT: EOMI, PERRLA. ABSENT: scleral icterus Mouth exam: PRESENT: moist, neck supple Throat exam: ABSENT: tonsillar exudate, tonsillogmegaly Neck exam: ABSENT: meningismus, tenderness, thyromegaly Respiratory exam: PRESENT: clear to auscultation noah, symmetrical. ABSENT: accessory muscle use Cardiovascular exam: PRESENT: RRR, +S1, +S2 Pulses: PRESENT: normal carotid pulses GI/Abdominal exam: PRESENT: soft. ABSENT: rebound, rigid, tenderness Extremities exam: PRESENT: full ROM. ABSENT: tenderness Musculoskeletal exam: PRESENT: full ROM Neurological exam: PRESENT: oriented to time, oriented to situation, reflexes normal, CN II-XII grossly intact Skin exam: PRESENT: normal color. ABSENT: mottled, pallor, urticaria, vesicles Results Laboratory Results: 03/01/17 04:24 03/01/17 04:24 WBC 6.0 RBC 3.37 L Hgb 9.7 L Hct 29.5 L MCV 88 MCH 28.9 MCHC 33.0 RDW 14.0 Plt Count 222 Impressions: Abdomen/Pelvis CT 02/26/17 00:00 IMPRESSION: No acute findings. Moderate right inguinal, small bowel herniation. Small left inguinal, partial small bowel herniation. Moderate hiatal hernia. Cholelithiasis. Diverticulosis of the colon. Chronic ankylosing spondylitis pattern. Assessment & Plan - Diagnosis (1) Diverticulosis of colon Qualifiers: Diverticulosis bleeding: diverticulosis with bleeding Qualified Code(s) : K57.31 - Diverticulosis of large intestine without perforation or abscess with bleeding Plan: High-fiber diet Patient advised to proceed to the emergency room or call the office if there is any left lower quadrant pain associated with fever, chills and a change of bowel habits Large volume painless bleeding (2) Rectal bleeding Plan: Result presumed to be due to diverticulosis Now has resolved (3) Colon polyp Plan: Will await pathology, follow-up surveillance 3-5 years - Time Time Spent with patient: 15-24 minutes
== END 2017-03-01 09:50 | disposition home or self-care (01) ==
LOC: ER 23:46 → EH 02-26 07:26 → UNDOADMOB 02-26 07:57 → 3W 02-26 11:59
PROVIDERS: ADMIT Internal Medicine; ATTEND Internal Medicine
PROC: 0DBP8ZX Excision of Rectum, Via Natural or Artificial Opening Endoscopic, Diagnostic (ICD-10-PCS; 2017-02-28)
PROC: 0DBK8ZX Excision of Ascending Colon, Via Natural or Artificial Opening Endoscopic, Diagnostic (ICD-10-PCS; principal; 2017-02-28 13:00)
DX: K57.31 Diverticulosis of large intestine without perforation or abscess with bleeding (principal); D12.2 Benign neoplasm of ascending colon; K62.1 Rectal polyp; D62 Acute posthemorrhagic anemia; I10 Essential (primary) hypertension; N40.0 Benign prostatic hyperplasia without lower urinary tract symptoms; E78.5 Hyperlipidemia, unspecified; K64.8 Other hemorrhoids; K44.9 Diaphragmatic hernia without obstruction or gangrene; K40.90 Unilateral inguinal hernia, without obstruction or gangrene, not specified as recurrent; K80.20 Calculus of gallbladder without cholecystitis without obstruction
CPT/HCPCS: 99285; 45385; 86900; 86901; 36415 ×4; 86850; 85025; 85027 ×4; 82272; 80053; 81001; 88305 ×2; 74177; G0378 ×5; A9270 ×7; J2250; J3010; J3490 ×4; J7030 ×3; J7120; J0171; J1200; J1610; J2310; J2405